=== PATIENT | male | born 1970 | race American Indian/Alaskan Native ===

== ENCOUNTER 2018-01-03 01:09 | Inpatient (IN) | payer MEDICAID ==
[~2018-01-03] VITALS: Ht 190.5 cm; Wt 140.0 kg
[2018-01-03] VITALS (20 sets, daily range): BP systolic 99–132; BP diastolic 63–95
[2018-01-03] MEDS ORDERED: ondansetron/PF 4mg/2ml inj IV ONE (01:30)
[2018-01-03] MEDS ORDERED: morphine 4 MG/ML inj SYRINge IV ONE (01:30)
[2018-01-03] MEDS ORDERED: nitroGLYCERIN 1gm ointment UD TP ONE (01:30)
[2018-01-03 01:47] LABS: BASOPHILS % (AUTO) 0.4 % (0-1); EOSINOPHILS # (AUTO) 0.3 X10'3 (0-0.9); EOSINOPHILS % (AUTO) 3.2 % (0-6); HEMATOCRIT 44.7 % (42.0-52.0); HEMOGLOBIN 14.5 g/dl (14.0-17.9); LYMPHOCYTES # (AUTO) 4.1 X10'3 (1.1-4.8); LYMPHOCYTES % (AUTO) 38.2 % (21-51); MEAN CORPUSCULAR HEMOGLOBIN 28.8 PG (27.0-31.0); MEAN CORPUSCULAR HGB CONC 32.4 % (33.0-36.5); MEAN CORPUSCULAR VOLUME 88.9 FL (78-98); MEAN PLATELET VOLUME 8.9 FL (7.4-10.4); MONOCYTES # (AUTO) 0.9 X10'3 (0-0.9); MONOCYTES % (AUTO) 8.3 % (2-12); NEUTROPHILS # (AUTO) 5.3 X10'3 (1.8-7.7); NEUTROPHILS % (AUTO) 49.9 % (42-75); PLATELET COUNT 168 X10'3 (140-440); RED BLOOD COUNT 5.03 X10'6 (4.70-6.10); RED CELL DISTRIBUTION WIDTH 13.2 % (11.5-14.5); WHITE BLOOD COUNT 10.6 X10'3 (4.5-11.0)
[2018-01-03 01:55] LABS: INR 1.1 INR; PARTIAL THROMBOPLASTIN TIME 49 SECONDS (22-32); PROTHROMBIN TIME 11.3 SECONDS (9.0-12.0)
[2018-01-03 02:06] LABS: ALANINE AMINOTRANSFERASE 30 U/L (12-78); ALBUMIN 3.3 G/DL (3.4-5.0); ALBUMIN/GLOBULIN RATIO 0.7 (1.1-1.5); ALKALINE PHOSPHATASE 87 IU/L (46-116); ANION GAP 11 (8-16); ASPARTATE AMINO TRANSFERASE 21 U/L (10-37); BILIRUBIN,TOTAL 0.8 MG/DL (0.1-1.0); BLOOD UREA NITROGEN 9 MG/DL (7-18); BUN/CREATININE RATIO 9.7 (5.4-32.0); CALCIUM 8.6 MG/DL (8.5-10.1); CHLORIDE 105 MMOL/L (99-107); CREATININE 0.93 MG/DL (0.60-1.10); GLUCOSE 107 MG/DL (70-104); LIPASE 67 U/L (73-393); MAGNESIUM 1.8 MG/DL (1.5-2.4); POTASSIUM 3.8 MMOL/L (3.5-5.1); SODIUM 139 MMOL/L (135-145); TOTAL CARBON DIOXIDE 22.7 MMOL/L (24-32); eGFR 87 ML/MIN
[2018-01-03] MEDS ORDERED: heparin 10,000 units/1 ML INJ ONE (02:09)
[2018-01-03] MEDS ORDERED: heparin 25,000 UNIT/D5W 250ml 0 ML IV ONE (02:09)
[2018-01-03 02:12] LABS: CLARITY,URINE CLEAR (Clear); COLOR,URINE YELLOW (Yellow); GLUCOSE, URINE NEGATIVE (Neg); KETONES,URINE NEGATIVE (Neg); LEUKOCYTE ESTERASE ,URINE NEGATIVE (Neg); NITRITES, URINE NEGATIVE (Neg); OCCULT BLOOD,URINE TRACE-LYSED (Neg); PH,URINE 5.5 (4.8-8.0); PROTEIN,URINE TRACE mg/dl (Neg); UROBILINOGEN,URINE >=8.0 E.U/dL (0.2-1.0)
[2018-01-03 02:17] LABS: UA COLLECTION TYPE CLN CATCH MIDSTREAM
[2018-01-03 02:18] LABS: WBC,URINE NONE SEEN /HPF (0-4)
[2018-01-03 02:19] LABS: BACTERIA,URINE NONE SEEN /HPF (Neg); RBC,URINE NONE SEEN /HPF (0-2); SQUAMOUS EPITHELIAL CELL,UR NONE SEEN /LPF (FEW)
[2018-01-03] MEDS ORDERED: acetaminophen 325mg tablet PO PRN (02:20)
[2018-01-03] MEDS ORDERED: diltiazem-NS 100mg/100ml 100 ML IV SCH (02:20)
[2018-01-03] MEDS ORDERED: magnesium hydroxide 30ml (MOM) UD suspension PO PRN (02:20)
[2018-01-03] MEDS ORDERED: enoxaparin 40mg/0.4ml syringe SUBCUT SCH (03:00)
[2018-01-03] MEDS: mag hydrox/Alum hydrox/simeth 30ml oral suspension PO PRN ×2 (03:11→21:34)
[2018-01-03] MEDS: ondansetron/PF 4mg/2ml inj IV PRN ×2 (03:12→12:10)
[2018-01-03] MEDS: morphine 4 MG/ML inj SYRINge IV PRN ×5 (03:12→21:34)
[2018-01-03] MEDS: enoxaparin 100mg/ml syringe SUBCUT SCH ×2 (03:13→15:42)
[2018-01-03] MEDS: enoxaparin 40mg/0.4ml syringe SUBCUT SCH ×2 (03:40→15:42)
[2018-01-03] MEDS ORDERED: NO HOME MEDS (07:30)
[2018-01-03] MEDS ORDERED: potassium Cl 20 mEq SR tablet PO STA (09:31)
[2018-01-03] MEDS ORDERED: nitroGLYCERIN 0.4mg SUBLingual tab SL PRN (09:35)
[2018-01-03] MEDS ORDERED: regadenoson 0.4mg/5ml syringe IV PRN (09:35)
[2018-01-03] MEDS ORDERED: CAFFEINE CITRATE 60 MG/3 ML injection vial IV PRN (09:35)
[2018-01-03] MEDS ORDERED: metoprolol tartrate 1mg/ml inj IV PRN (09:35)
[2018-01-03] MEDS ORDERED: furosemide 40mg/4ml inj IV ONE (09:35)
[2018-01-03 10:13] LABS: CHOL/HDL RATIO 3.3 (0.00-4.99); CHOLESTEROL 105 MG/DL (0-200); HDL CHOLESTEROL 32 MG/DL (35-60); LDL CHOLESTEROL 84 MG/DL (50-100); TRIGLYCERIDES 70 MG/DL (20-135)
[2018-01-03] MEDS: aspirin 81mg tab.chew PO SCH (10:18)
[2018-01-03] MEDS: carvedilol 6.25mg tablet PO SCH ×2 (10:18→21:33)
[2018-01-03] MEDS: atorvastatin 20mg tablet PO SCH (10:18)
[2018-01-03] MEDS ORDERED: regadenoson 0.4mg/5ml syringe IV ONE (13:36)
[2018-01-03] MEDS ORDERED: CAFFEINE CITRATE 60 MG/3 ML injection vial IV ONE (13:36)
[2018-01-03] MEDS: metoprolol tartrate 1mg/ml inj IV PRN (17:58)
[2018-01-03] MEDS: lisinopril 2.5mg tablet PO SCH (21:33)
[2018-01-04 03:00] VITALS: BP 125/80
[2018-01-04] MEDS: enoxaparin 40mg/0.4ml syringe SUBCUT SCH (03:19)
[2018-01-04] MEDS: enoxaparin 100mg/ml syringe SUBCUT SCH (03:20)
[2018-01-04 05:20] LABS: BASOPHILS % (AUTO) 0.4 % (0-1); EOSINOPHILS # (AUTO) 0.3 X10'3 (0-0.9); EOSINOPHILS % (AUTO) 2.8 % (0-6); HEMATOCRIT 41.3 % (42.0-52.0); HEMOGLOBIN 13.7 g/dl (14.0-17.9); LYMPHOCYTES # (AUTO) 2.7 X10'3 (1.1-4.8); LYMPHOCYTES % (AUTO) 25.3 % (21-51); MEAN CORPUSCULAR HEMOGLOBIN 29.6 PG (27.0-31.0); MEAN CORPUSCULAR HGB CONC 33.2 % (33.0-36.5); MEAN CORPUSCULAR VOLUME 89.2 FL (78-98); MEAN PLATELET VOLUME 8.8 FL (7.4-10.4); MONOCYTES # (AUTO) 0.9 X10'3 (0-0.9); MONOCYTES % (AUTO) 8.4 % (2-12); NEUTROPHILS # (AUTO) 6.8 X10'3 (1.8-7.7); NEUTROPHILS % (AUTO) 63.1 % (42-75); PLATELET COUNT 164 X10'3 (140-440); RED BLOOD COUNT 4.63 X10'6 (4.70-6.10); RED CELL DISTRIBUTION WIDTH 13.6 % (11.5-14.5); WHITE BLOOD COUNT 10.8 X10'3 (4.5-11.0)
[2018-01-04 05:34] LABS: ALANINE AMINOTRANSFERASE 29 U/L (12-78); ALBUMIN/GLOBULIN RATIO 0.7 (1.1-1.5); ALKALINE PHOSPHATASE 72 IU/L (46-116); ANION GAP 6 (8-16); ASPARTATE AMINO TRANSFERASE 20 U/L (10-37); BILIRUBIN,TOTAL 0.8 MG/DL (0.1-1.0); BLOOD UREA NITROGEN 11 MG/DL (7-18); BUN/CREATININE RATIO 11.2 (5.4-32.0); CALCIUM 8.4 MG/DL (8.5-10.1); CHLORIDE 103 MMOL/L (99-107); CREATININE 0.98 MG/DL (0.60-1.10); GLUCOSE 95 MG/DL (70-104); POTASSIUM 3.6 MMOL/L (3.5-5.1); SODIUM 137 MMOL/L (135-145); TOTAL CARBON DIOXIDE 28.5 MMOL/L (24-32); TOTAL PROTEIN 7.3 G/DL (6.4-8.2); eGFR 82 ML/MIN
[2018-01-04 06:00] VITALS: BP 117/93
[2018-01-04] MEDS: atorvastatin 20mg tablet PO SCH (07:58)
[2018-01-04] MEDS: spironolactone 25 MG tablet PO SCH (07:58)
[2018-01-04] MEDS: carvedilol 6.25mg tablet PO SCH (07:58)
[2018-01-04] MEDS: morphine 4 MG/ML inj SYRINge IV PRN (07:59)
[2018-01-04] MEDS: aspirin 81mg tab.chew PO SCH (07:59)
[2018-01-04] MEDS: apixaban 5mg tablet PO SCH ×2 (07:59→20:48)
[2018-01-04] MEDS ORDERED: enoxaparin 40mg/0.4ml syringe SUBCUT SCH (08:00)
[2018-01-04] MEDS ORDERED: potassium Cl 20 mEq SR tablet PO STA (08:01)
[2018-01-04] MEDS ORDERED: furosemide 40mg/4ml inj IV ONE (08:05)
[2018-01-04 11:00] VITALS: BP 118/81
[2018-01-04 15:00] VITALS: BP 104/72
[2018-01-04] MEDS: metoprolol tartrate 1mg/ml inj IV PRN (16:08)
[2018-01-04 19:00] VITALS: BP 113/78
[2018-01-04] MEDS: carVEDilol 12.5mg tablet PO SCH (20:49)
[2018-01-04] MEDS: lisinopril 2.5mg tablet PO SCH (20:49)
[2018-01-04 23:00] VITALS: BP 123/69
[2018-01-05] VITALS (9 sets, daily range): BP systolic 100–139; BP diastolic 69–90
[2018-01-05 05:38] LABS: BASOPHILS # (AUTO) 0.1 X10'3 (0-0.2); BASOPHILS % (AUTO) 0.5 % (0-1); EOSINOPHILS # (AUTO) 0.3 X10'3 (0-0.9); HEMATOCRIT 42.4 % (42.0-52.0); LYMPHOCYTES # (AUTO) 2.9 X10'3 (1.1-4.8); MEAN CORPUSCULAR HEMOGLOBIN 29.1 PG (27.0-31.0); MEAN CORPUSCULAR HGB CONC 32.9 % (33.0-36.5); MEAN CORPUSCULAR VOLUME 88.3 FL (78-98); MEAN PLATELET VOLUME 8.7 FL (7.4-10.4); MONOCYTES % (AUTO) 8.9 % (2-12); NEUTROPHILS # (AUTO) 7.3 X10'3 (1.8-7.7); NEUTROPHILS % (AUTO) 62.6 % (42-75); PLATELET COUNT 171 X10'3 (140-440); RED BLOOD COUNT 4.81 X10'6 (4.70-6.10); RED CELL DISTRIBUTION WIDTH 13.6 % (11.5-14.5); WHITE BLOOD COUNT 11.6 X10'3 (4.5-11.0)
[2018-01-05 06:09] LABS: ALANINE AMINOTRANSFERASE 26 U/L (12-78); ALBUMIN/GLOBULIN RATIO 0.7 (1.1-1.5); ALKALINE PHOSPHATASE 75 IU/L (46-116); ANION GAP 6 (8-16); ASPARTATE AMINO TRANSFERASE 19 U/L (10-37); BILIRUBIN,TOTAL 0.6 MG/DL (0.1-1.0); BLOOD UREA NITROGEN 13 MG/DL (7-18); BUN/CREATININE RATIO 13.3 (5.4-32.0); CALCIUM 8.5 MG/DL (8.5-10.1); CHLORIDE 103 MMOL/L (99-107); CREATININE 0.98 MG/DL (0.60-1.10); GLUCOSE 93 MG/DL (70-104); POTASSIUM 3.8 MMOL/L (3.5-5.1); SODIUM 136 MMOL/L (135-145); TOTAL CARBON DIOXIDE 27.5 MMOL/L (24-32); TOTAL PROTEIN 7.4 G/DL (6.4-8.2); eGFR 82 ML/MIN
[2018-01-05] MEDS: apixaban 5mg tablet PO SCH ×2 (08:25→20:09)
[2018-01-05] MEDS: carVEDilol 12.5mg tablet PO SCH ×2 (08:26→20:10)
[2018-01-05] MEDS: atorvastatin 20mg tablet PO SCH (08:26)
[2018-01-05] MEDS: spironolactone 25 MG tablet PO SCH (08:26)
[2018-01-05] MEDS ORDERED: carVEDilol 12.5mg tablet PO STA (09:27)
[2018-01-05] MEDS: metoprolol tartrate 1mg/ml inj IV PRN (14:17)
[2018-01-05] MEDS: morphine 4 MG/ML inj SYRINge IV PRN (15:52)
[2018-01-05] MEDS: lisinopril 2.5mg tablet PO SCH (20:10)
[2018-01-06 03:00] VITALS: BP 115/74
[2018-01-06 05:37] LABS: BASOPHILS # (AUTO) 0.1 X10'3 (0-0.2); BASOPHILS % (AUTO) 0.5 % (0-1); EOSINOPHILS # (AUTO) 0.4 X10'3 (0-0.9); EOSINOPHILS % (AUTO) 3.8 % (0-6); HEMATOCRIT 44.4 % (42.0-52.0); HEMOGLOBIN 14.8 g/dl (14.0-17.9); LYMPHOCYTES % (AUTO) 26.8 % (21-51); MEAN CORPUSCULAR HEMOGLOBIN 29.1 PG (27.0-31.0); MEAN CORPUSCULAR HGB CONC 33.2 % (33.0-36.5); MEAN CORPUSCULAR VOLUME 87.5 FL (78-98); MEAN PLATELET VOLUME 8.7 FL (7.4-10.4); MONOCYTES # (AUTO) 1.1 X10'3 (0-0.9); MONOCYTES % (AUTO) 9.7 % (2-12); NEUTROPHILS # (AUTO) 6.6 X10'3 (1.8-7.7); NEUTROPHILS % (AUTO) 59.2 % (42-75); PLATELET COUNT 186 X10'3 (140-440); RED BLOOD COUNT 5.07 X10'6 (4.70-6.10); RED CELL DISTRIBUTION WIDTH 14.3 % (11.5-14.5); WHITE BLOOD COUNT 11.2 X10'3 (4.5-11.0)
[2018-01-06 06:00] VITALS: BP 126/84
[2018-01-06 06:10] LABS: ALANINE AMINOTRANSFERASE 27 U/L (12-78); ALBUMIN 3.1 G/DL (3.4-5.0); ALBUMIN/GLOBULIN RATIO 0.7 (1.1-1.5); ALKALINE PHOSPHATASE 82 IU/L (46-116); ANION GAP 7 (8-16); ASPARTATE AMINO TRANSFERASE 21 U/L (10-37); BILIRUBIN,TOTAL 0.6 MG/DL (0.1-1.0); BLOOD UREA NITROGEN 11 MG/DL (7-18); BUN/CREATININE RATIO 10.8 (5.4-32.0); CALCIUM 8.7 MG/DL (8.5-10.1); CHLORIDE 102 MMOL/L (99-107); CREATININE 1.02 MG/DL (0.60-1.10); GLUCOSE 100 MG/DL (70-104); POTASSIUM 3.9 MMOL/L (3.5-5.1); SODIUM 135 MMOL/L (135-145); TOTAL CARBON DIOXIDE 26.5 MMOL/L (24-32); TOTAL PROTEIN 7.6 G/DL (6.4-8.2); eGFR 79 ML/MIN
[2018-01-06] MEDS: atorvastatin 20mg tablet PO SCH (09:08)
[2018-01-06] MEDS: apixaban 5mg tablet PO SCH ×2 (09:08→20:32)
[2018-01-06] MEDS: spironolactone 25 MG tablet PO SCH (09:08)
[2018-01-06] MEDS: carVEDilol 12.5mg tablet PO SCH ×2 (09:08→20:32)
[2018-01-06] MEDS: morphine 4 MG/ML inj SYRINge IV PRN ×2 (09:17→20:41)
[2018-01-06] MEDS ORDERED: digoxin 250mcg (0.25mg) tablet PO ONE ×3 (09:30→20:00)
[2018-01-06 11:00] VITALS: BP 97/67
[2018-01-06 15:00] VITALS: BP 121/89
[2018-01-06 19:00] VITALS: BP 119/73
[2018-01-06] MEDS: lisinopril 2.5mg tablet PO SCH (20:32)
[2018-01-06 23:00] VITALS: BP 112/75
[2018-01-07 03:00] VITALS: BP 108/70
[2018-01-07 06:00] VITALS: BP_SYST 109; BP_SYST 140; BP_DIAS 71; BP_DIAS 80
[2018-01-07 06:12] LABS: BASOPHILS # (AUTO) 0.1 X10'3 (0-0.2); BASOPHILS % (AUTO) 0.6 % (0-1); EOSINOPHILS # (AUTO) 0.5 X10'3 (0-0.9); HEMATOCRIT 47.4 % (42.0-52.0); HEMOGLOBIN 15.7 g/dl (14.0-17.9); LYMPHOCYTES # (AUTO) 3.5 X10'3 (1.1-4.8); LYMPHOCYTES % (AUTO) 29.3 % (21-51); MEAN CORPUSCULAR HEMOGLOBIN 29.1 PG (27.0-31.0); MEAN CORPUSCULAR HGB CONC 33.1 % (33.0-36.5); MEAN CORPUSCULAR VOLUME 88.1 FL (78-98); MEAN PLATELET VOLUME 8.8 FL (7.4-10.4); MONOCYTES % (AUTO) 8.4 % (2-12); NEUTROPHILS # (AUTO) 6.9 X10'3 (1.8-7.7); NEUTROPHILS % (AUTO) 57.7 % (42-75); PLATELET COUNT 193 X10'3 (140-440); RED BLOOD COUNT 5.39 X10'6 (4.70-6.10); RED CELL DISTRIBUTION WIDTH 13.8 % (11.5-14.5)
[2018-01-07 06:40] LABS: ALANINE AMINOTRANSFERASE 33 U/L (12-78); ALBUMIN 3.3 G/DL (3.4-5.0); ALBUMIN/GLOBULIN RATIO 0.7 (1.1-1.5); ALKALINE PHOSPHATASE 88 IU/L (46-116); ANION GAP 9 (8-16); ASPARTATE AMINO TRANSFERASE 27 U/L (10-37); BILIRUBIN,TOTAL 0.7 MG/DL (0.1-1.0); BLOOD UREA NITROGEN 14 MG/DL (7-18); BUN/CREATININE RATIO 13.5 (5.4-32.0); CALCIUM 9.1 MG/DL (8.5-10.1); CHLORIDE 101 MMOL/L (99-107); CREATININE 1.04 MG/DL (0.60-1.10); GLUCOSE 95 MG/DL (70-104); POTASSIUM 3.9 MMOL/L (3.5-5.1); SODIUM 136 MMOL/L (135-145); TOTAL CARBON DIOXIDE 26.5 MMOL/L (24-32); TOTAL PROTEIN 8.2 G/DL (6.4-8.2); eGFR 77 ML/MIN
[2018-01-07] MEDS: atorvastatin 20mg tablet PO SCH (08:43)
[2018-01-07] MEDS: carVEDilol 12.5mg tablet PO SCH ×2 (08:44→21:21)
[2018-01-07] MEDS: spironolactone 25 MG tablet PO SCH (08:44)
[2018-01-07] MEDS: digoxin 250mcg (0.25mg) tablet PO SCH (08:44)
[2018-01-07] MEDS: apixaban 5mg tablet PO SCH ×2 (08:44→20:00)
[2018-01-07] MEDS: morphine 4 MG/ML inj SYRINge IV PRN ×2 (10:55→21:37)
[2018-01-07 11:00] VITALS: BP 105/81
[2018-01-07 15:00] VITALS: BP 128/79
[2018-01-07 19:00] VITALS: BP 101/66
[2018-01-07] MEDS ORDERED: digoxin 250mcg/ml 2ml ampule IV ONE ×2 (19:35→21:30)
[2018-01-07] MEDS: triamcinolone acet 0.1% cream 15gm TP SCH (20:00)
[2018-01-07] MEDS: lisinopril 2.5mg tablet PO SCH (21:21)
[2018-01-07 23:00] VITALS: BP 133/63
[2018-01-08 03:00] VITALS: BP 110/73
[2018-01-08 06:00] VITALS: BP 110/77
[2018-01-08] MEDS ORDERED: digoxin 250mcg/ml 2ml ampule IV ONE (06:00)
[2018-01-08 06:18] LABS: BASOPHILS # (AUTO) 0.1 X10'3 (0-0.2); BASOPHILS % (AUTO) 0.9 % (0-1); EOSINOPHILS # (AUTO) 0.4 X10'3 (0-0.9); EOSINOPHILS % (AUTO) 3.5 % (0-6); HEMATOCRIT 48.2 % (42.0-52.0); LYMPHOCYTES # (AUTO) 2.9 X10'3 (1.1-4.8); LYMPHOCYTES % (AUTO) 23.6 % (21-51); MEAN CORPUSCULAR HEMOGLOBIN 28.9 PG (27.0-31.0); MEAN CORPUSCULAR HGB CONC 33.3 % (33.0-36.5); MEAN PLATELET VOLUME 8.4 FL (7.4-10.4); MONOCYTES # (AUTO) 0.9 X10'3 (0-0.9); MONOCYTES % (AUTO) 7.6 % (2-12); NEUTROPHILS # (AUTO) 7.8 X10'3 (1.8-7.7); NEUTROPHILS % (AUTO) 64.4 % (42-75); PLATELET COUNT 206 X10'3 (140-440); RED BLOOD COUNT 5.54 X10'6 (4.70-6.10); RED CELL DISTRIBUTION WIDTH 13.8 % (11.5-14.5); WHITE BLOOD COUNT 12.1 X10'3 (4.5-11.0)
[2018-01-08 06:38] LABS: ALANINE AMINOTRANSFERASE 40 U/L (12-78); ALBUMIN 3.3 G/DL (3.4-5.0); ALBUMIN/GLOBULIN RATIO 0.7 (1.1-1.5); ALKALINE PHOSPHATASE 86 IU/L (46-116); ANION GAP 7 (8-16); ASPARTATE AMINO TRANSFERASE 29 U/L (10-37); BILIRUBIN,TOTAL 0.8 MG/DL (0.1-1.0); BLOOD UREA NITROGEN 17 MG/DL (7-18); BUN/CREATININE RATIO 15.3 (5.4-32.0); CHLORIDE 101 MMOL/L (99-107); CREATININE 1.11 MG/DL (0.60-1.10); GLUCOSE 95 MG/DL (70-104); POTASSIUM 3.7 MMOL/L (3.5-5.1); SODIUM 135 MMOL/L (135-145); TOTAL CARBON DIOXIDE 27.1 MMOL/L (24-32); TOTAL PROTEIN 8.2 G/DL (6.4-8.2); eGFR 71 ML/MIN
[2018-01-08] MEDS: spironolactone 25 MG tablet PO SCH (08:09)
[2018-01-08] MEDS: triamcinolone acet 0.1% cream 15gm TP SCH (08:10)
[2018-01-08] MEDS: apixaban 5mg tablet PO SCH (08:10)
[2018-01-08] MEDS: atorvastatin 20mg tablet PO SCH (08:10)
[2018-01-08] MEDS: digoxin 250mcg (0.25mg) tablet PO SCH (08:10)
[2018-01-08] MEDS: carVEDilol 12.5mg tablet PO SCH (08:10)
[2018-01-08 11:00] VITALS: BP 112/76
[2018-01-08] MEDS ORDERED: ATOR20TA66 PO (12:09)
[2018-01-08] MEDS ORDERED: DIGO-27 PO (12:09)
[2018-01-08] MEDS ORDERED: APIX5TAB3 PO (12:09)
[2018-01-08] MEDS ORDERED: LISI2.5T2 PO (12:09)
[2018-01-08] MEDS ORDERED: CARV-50 PO (12:09)
[2018-01-08] MEDS ORDERED: SPIR25TA PO (12:09)
[2018-01-08] MEDS ORDERED: FURO-150 PO (12:13)
== END 2018-01-08 14:24 | disposition home or self-care (01) | DRG 194 ==
LOC: ER 01:09 → ED HOLD 02:20 → EDBEDREQ 03:36 → PCU 3S 04:10
PROVIDERS: ADMIT Internal Medicine; ATTEND Family Medicine
PROC: 4A02XM4 Measurement of Cardiac Total Activity, External Approach (ICD-10-PCS; principal; 2018-01-03)
PROC: 3E033HZ Introduction of Radioactive Substance into Peripheral Vein, Percutaneous Approach (ICD-10-PCS; 2018-01-03)
DX: I50.21 Acute systolic (congestive) heart failure (principal); I21.A1 Myocardial infarction type 2; Z79.01 Long term (current) use of anticoagulants; E66.01 Morbid (severe) obesity due to excess calories; F10.10 Alcohol abuse, uncomplicated; F17.210 Nicotine dependence, cigarettes, uncomplicated; I48.0 Paroxysmal atrial fibrillation; R79.1 Abnormal coagulation profile; G47.33 Obstructive sleep apnea (adult) (pediatric); I25.2 Old myocardial infarction; Z90.49 Acquired absence of other specified parts of digestive tract; Z79.899 Other long term (current) drug therapy; Z82.49 Family history of ischemic heart disease and other diseases of the circulatory system; Z68.38 Body mass index [BMI] 38.0-38.9, adult; Z71.6 Tobacco abuse counseling; Z71.3 Dietary counseling and surveillance
CPT/HCPCS: 36415; 78452; 80053; 80061; 81001; 83690; 83735; 83880; 84484; 85025; 85610; 85730; 87070; 93005; 93017; 93306; 93970; 96374; 96375; 99291; A9500; J1644; J1650; J1940; J2270; J2405; J3490